=== PATIENT | female | born 1965 | race Caucasian/White ===

== ENCOUNTER 2025-09-18 14:33 | Inpatient (IN) | payer MEDICAID, SELFPAY ==
[2025-09-18] VITALS (7 sets, daily range): BP systolic 116–139; BP diastolic 87–97; PULSE 88–105; RESP 16–20; TEMP 36.7–36.9; O2SAT 97–100; BMI 26.2; BMI 25.7
[2025-09-18 16:06] LABS: Barbiturate Urine NEGATIVE (< 200 ng/mL); Benzodiazepine Urine NEGATIVE (< 200 ng/mL); PCP Urine NEGATIVE (< 25 ng/mL); THC Urine NEGATIVE (< 50 ng/mL)
--- NOTE | 2025-09-18 16:08 | EX.ED.SAOD ---
HPI History of Present Illness Chief Complaint: Substance Abuse Narrative Narrative: 60-year-old female past medical history of hypertension, GERD, and depression presents with her eldest son for detox from alcohol. They state that they were somewhere in [place], and were told that she needed to enter detox either at [place] or here. Her last detox was approximately 4 years ago. She was sober for approximately 1 year according to her, when she returned to drinking alcohol. She states that she drinks at least 3 to 416 ounce beers and then 2 to 324 ounce beers daily. Her last drink was 18 to 20 hours ago. States she feels slightly nauseated and was slightly shaky, but states she has never had seizures from alcohol withdrawal in the past. No exacerbating or alleviating factors. PFSH PFSH Allergy/AdvReac Type Severity Reaction Status Date / Time Sulfa (Sulfonamide Allergy Rash Verified 09/18/25 14:36 Antibiotics) ROS ROS ED ROS Narrative Review of systems positive for nausea and shakiness. Shakiness has resolved. No abdominal pain. No vomiting. No seizure activity. Last drink 18 to 20 hours ago. Usually drinks beer on a daily basis. Last rehab approximately 4 years ago in [place]. EXAM Physical Exam Narrative Exam Narrative: Afebrile. Vital signs noted. Nontoxic-appearing. Cardiovascular examination reveals regular rate and rhythm. Lungs are clear to auscultation bilaterally. Abdomen is soft and nontender with positive bowel sounds. No guarding or rebound. Neurological examination is nonfocal, nonlateralizing. Awake, alert, interactive, appropriate. No noted tremors. Const Vital Signs: 09/18/25 14:34 09/18/25 16:34 09/18/25 18:00 Temperature 98.3 F Temperature Source Oral Pulse Rate 88 96 91 Respiratory Rate 16 20 H Blood Pressure 135/87 H 133/96 H 138/93 H Blood Pressure Mean 103 108 108 Pulse Ox 100 98 98 Oxygen Delivery Method Room Air Room Air Room Air MDM MDM MDM Narrative Medical decision making narrative: I do not feel that differential diagnosis is applicable in this case. She is here for detox from alcohol. Currently, there are no signs of active withdrawal. She has not been excessively hypertensive with a blood pressure of 135/87. No tachycardia. No noted gooseflesh or tremors. Urine for drugs of abuse obtained and reviewed and is negative. I reviewed her laboratory work and she has normal white count of 6.9 with hemoglobin slightly hemoconcentrated at 15.3, hematocrit 41.2, platelet count 259. CMP is noted to have hyponatremia with sodium of 127 and potassium 3.2, chloride low at 87. Glucose is elevated 223 and anion gap slightly elevated at 16. LFTs are elevated with an AST of 90, ALT of 79, and alk phos of 202. Magnesium is normal at 1.6. Urine for drugs of abuse is negative. Alcohol level is less than 10.1. I discussed the patient with Dr. Reed for admission to the medical surgical floor. Initially I had inquired about phenobarbital, but on his examination, he will administer/ordered lorazepam 2 mg IV for the patient because of shakiness. Disposition is admitted to the general medical floor in stable condition. History & Record Review Discussion w/independent historian: Patient and Family (Call the son) Additional record(s) reviewed:: No prior records (No prior ED visits) Lab Data Attestation: I reviewed the patient's lab results. Labs: Laboratory Results - last 24 hr 09/18/25 09/18/25 15:00 16:49 WBC 6.9 RBC 4.73 Hgb 15.3 H Hct 41.2 MCV 87.1 MCH 32.3 H MCHC 37.1 H RDW Std Deviation 35.7 RDW Coeff of Serene 11.0 L Plt Count 259 MPV 9.5 Immature Gran % (Auto) 0.100 Neut % (Auto) 70.1 H Lymph % (Auto) 16.3 L [place] % (Auto) 12.4 H Eos % (Auto) 0.1 Baso % (Auto) 1.0 Absolute Neuts (auto) 4.8 Absolute Lymphs (auto) 1.13 Nucleated RBC % 0 Sodium 127 L Potassium 3.2 L Chloride 87 L Carbon Dioxide 23.3 Anion Gap 16 H BUN 5 Creatinine 0.55 L Estim Creat Clear Calc 93.99 Est GFR (MDRD) Non-Af 104 BUN/Creatinine Ratio 8.9 L Glucose 223 H Calcium 10.2 Magnesium 1.6 Total Bilirubin 1.24 AST 90 H ALT 79 H Alkaline Phosphatase 202 H Total Protein 8.2 Albumin 4.6 Globulin 3.6 Albumin/Globulin Ratio 1.3 Urine Opiates Screen NEGATIVE U Buprenorphine Qual NEGATIVE Ur Oxycodone Screen NEGATIVE Urine Methadone Screen NEGATIVE Urine Fentanyl Screen NEGATIVE Ur Barbiturates Screen NEGATIVE Ur Phencyclidine Scrn NEGATIVE Ur Amphetamines Screen NEGATIVE U Benzodiazepines Scrn NEGATIVE Urine Cocaine Screen NEGATIVE U Cannabinoids Screen NEGATIVE Ethyl Alcohol < 10.1 Management Discussion w/another healthcare provider: Hospitalist (Dr. Reed) Discharge Plan Dx/Rx/DC Orders Clinical Impression: Desire for detoxification, Hyponatremia, Hypokalemia Disposition Disposition: Acute Care Hospital [facility]
--- NOTE | 2025-09-18 17:13 | CM.ED ---
Social Work Patient requesting detox from alcohol. Treatment navigator notified of admission. Natacha Gaxiola, ENCAPSULATOR, MOTOR VEHICLES SUPERVISOR
[2025-09-18 17:21] LABS: Alcohol, Blood (Medical)-Serum < 10.1 mg/dL (<=10.0)
[2025-09-18 17:23] LABS: AST(SGOT) 90 U/L (<=31); Alanine Aminotransfer ALT/SGPT 79 U/L (<=34); Albumin, Serum 4.6 g/dL (3.4-4.8); Alkaline Phosphatase 202 U/L (35-104); Anion Gap 16 (5-15); BUN 5 mg/dL (4-19); BUN/Creat Ratio 8.9 RATIO (10-20); Calcium,Total 10.2 mg/dL (7.6-11.0); Carbon Dioxide 23.3 mmol/L (21.0-32.0); Chloride 87 mmol/L (98-108); Estimated Creatinine Clearance 93.99 ml/min (50-250); Globulin 3.6 g/dL (2.2-4.2); Glucose 223 mg/dL (70-99); Potassium 3.2 mmol/L (3.3-5.1)
[2025-09-18 17:45] LABS: Hematocrit 41.2 % (37-47); Hemoglobin 15.3 g/dL (12.0-15.0); Immature Granulocytes Count 0.010 X10^3/uL (0.0-0.0); Mean Corp Hgb Conc 37.1 g/dL (32-36); Mean Corpuscular Volume 87.1 fL (81-99); Mean Platelet Vol. 9.5 fl (6.2-12.0); NRBC Flagged by Analyzer 0 % (0-5); Platelet Count 259 K/mm3 (150-450); RBC Distribution Width CV 11.0 % (11.6-14.6); RBC Distribution Width SD 35.7 fl (35.1-43.9); Red Blood Count 4.73 M/mm3 (4.2-5.4); White Blood Count 6.9 K/mm3 (4.4-11.0)
[2025-09-18 18:40] LABS: Magnesium 1.6 mg/dL (1.5-2.2)
--- NOTE | 2025-09-18 20:34 | PCM.HP.STD ---
HPI - General General Date of Admission: 09/18/25 Date of Service: 09/18/25 Chief Complaint: Requesting services for alcohol detox HPI Narrative ANA SAHA, is a 60 F who presents to the emergency room at [facility] requesting services for alcohol substance use disorder and alcohol detox. Patient's last drink was yesterday, she complains of feeling nervous and shaky. Patient had gone through detox before when she lived in [place]. Patient admits to drinking the equivalent of 14 light beers (12 ounces) per day. Patient denies any liquor usage and she denies any other substance abuse. Patient does not know any of her medications although she states she does take an antidepressant and medicine for hypertension. It appears she obtains these medications by mail and I am unable to confirm what these medications are. Labs obtained in the emergency room included a CBC which was unremarkable, chemistry profile was abnormal for a sodium of 127, potassium of 3.2, chloride of 87, and glucose of 223. Patient's liver enzymes are elevated-her AST was 90, ALT was 79, and alkaline phosphatase was 202. Patient will be admitted to [place] [id number], she will have a repeat BMP tomorrow morning, she will be given sliding scale insulin per fingerstick blood sugars, I have elected to give her IV fluid for now and recheck her sodium tomorrow morning with her BMP. It is likely her beer intake is causing low sodium. Nursing will need to confirm her home medications, perhaps her son can provide the information. [facility] Medical History Alcohol abuse Anxiety Depression Smoker Allergy/AdvReac Type Severity Reaction Status Date / Time Sulfa (Sulfonamide Allergy Rash Verified 09/18/25 14:36 Antibiotics) Surgical History (Updated 09/18/25 @ 19:09 by Azucena Ibanez) History of cholecystectomy Social History Smoking Status: Current every day smoker tobacco type: cigarettes ROS Constitutional Constitutional: Denies anorexia, change in weight, chills, fever(s), night sweats or weakness Eyes Eyes: Denies blurry vision, change in vision, discharge from eye(s) or eye pain Cardiovascular Cardiovascular: Denies chest pain, claudication, edema or palpitations Respiratory/Chest Respiratory/Chest: Denies cough, hemoptysis, shortness of breath at rest or shortness of breath with exertion Gastrointestinal Gastrointestinal: Denies abdominal pain, constipation, diarrhea, hematemesis, hematochezia, melena, nausea or vomiting Genitourinary Genitourinary: Denies dysuria, hematuria, urinary frequency, urinary hesitancy, urinary incontinence or urinary urgency Musculoskeletal Musculoskeletal: Denies back pain, joint pain, joint stiffness, joint swelling, myalgias or neck pain Neurologic Neurologic: Denies abnormal gait, abnormal speech, dizziness, focal weakness, headache(s), loss of vision, numbness, other visual disturbances, paresthesias, syncope or tingling Psychiatric Psychiatric: Reports anxiety, depression and irritability; Denies cognitive impairment, mood swings or suicidal ideation Endocrine Endocrinology: Denies change in body appearance, cold intolerance, excessive sweating, heat intolerance, polydipsia or polyuria Hematologic/Lymphatic Hematologic/Lymphatic: Denies none, anemia, easy bleeding, easy bruising or lymphadenopathy Allergic/Immunologic Allergic/Immunologic: Denies rhinitis, urticaria, eczemia or asthma Vital Signs Vital Signs Vital Signs: 09/18/25 14:34 09/18/25 16:34 09/18/25 18:00 Temperature 98.3 F Temperature Source Oral Pulse Rate 88 96 91 Respiratory Rate 16 20 H Blood Pressure 135/87 H 133/96 H 138/93 H Blood Pressure Mean 103 108 108 Pulse Ox 100 98 98 Oxygen Delivery Method Room Air Room Air Room Air 09/18/25 19:14 Temperature 98.0 F Temperature Source Pulse Rate 104 H Respiratory Rate 18 Blood Pressure 139/97 H Blood Pressure Mean 111 Pulse Ox 97 Oxygen Delivery Method Weight Weight: 65.2 kg Body Mass Index (BMI) 26.2 Physical Exam Const alert, oriented x3, no apparent distress and average body habitus Constitutional Narrative: Patient appears older than her stated age General Appearance: cooperative, well kempt and well developed Orientation / Consciousness: awake, oriented to person, oriented to place and oriented to time HEENT normocephalic, head/scalp atraumatic, hearing grossly normal bilaterally and moist oral mucous membranes Eyes PERRL, EOMs intact bilaterally and conjunctivae normal Neck supple, no JVD, thyroid normal and no carotid bruits General: trachea midline Resp normal respiratory effort, no retractions, no use of accessory muscles and clear to auscultation bilaterally Auscultation: Negative for rales, rhonchi or wheezes Cardio regular rate, regular rhythm, S1 normal heart sound, S2 normal heart sound, no murmurs, no rub and no gallops GI normal to inspection, nondistended, normoactive bowel sounds, soft to palpation, non-tender and non-distended Extremity no clubbing, cyanosis or edema Skin no rashes or lesions noted General Skin Exam: no breakdown Neuro oriented x3, CN's II-XII intact bilaterally, no focal motor deficits and no sensory deficits noted Sensorium / Orientation: awake and alert Speech: speech normal Psych Psych Narrative: Patient appears mildly anxious, she is appropriate and not agitated Results Lab / Micro Data 09/18/25 16:49 09/18/25 16:49 Labs: Laboratory Results - last 24 hr 09/18/25 15:00: Urine Opiates Screen NEGATIVE, U Buprenorphine Qual NEGATIVE, Ur Oxycodone Screen NEGATIVE, Urine Methadone Screen NEGATIVE, Urine Fentanyl Screen NEGATIVE, Ur Barbiturates Screen NEGATIVE, Ur Phencyclidine Scrn NEGATIVE, Ur Amphetamines Screen NEGATIVE, U Benzodiazepines Scrn NEGATIVE, Urine Cocaine Screen NEGATIVE, U Cannabinoids Screen NEGATIVE 09/18/25 16:49: WBC 6.9, RBC 4.73, Hgb 15.3 H, Hct 41.2, MCV 87.1, MCH 32.3 H, MCHC 37.1 H, RDW Std Deviation 35.7, RDW Coeff of Serene 11.0 L, Plt Count 259, MPV 9.5, Immature Gran % (Auto) 0.100, Neut % (Auto) 70.1 H, Lymph % (Auto) 16.3 L, [place] % (Auto) 12.4 H, Eos % (Auto) 0.1, Baso % (Auto) 1.0, Absolute Neuts (auto) 4.8, Absolute Lymphs (auto) 1.13, Nucleated RBC % 0, Sodium 127 L, Potassium 3.2 L, Chloride 87 L, Carbon Dioxide 23.3, Anion Gap 16 H, BUN 5, Creatinine 0.55 L, Estim Creat Clear Calc 93.99, Est GFR (MDRD) Non-Af 104, BUN/Creatinine Ratio 8.9 L, Glucose 223 H, Calcium 10.2, Magnesium 1.6, Total Bilirubin 1.24, AST 90 H, ALT 79 H, Alkaline Phosphatase 202 H, Total Protein 8.2, Albumin 4.6, Globulin 3.6, Albumin/Globulin Ratio 1.3, Ethyl Alcohol < 10.1 Assessment & Plan Assessment/Plan (1) Desire for detoxification: PLAN: Plan 1. Acute alcohol withdrawal-patient will be admitted to [facility], she will be placed on a phenobarbital taper and be seen by addiction medical social consultant. CIWA scores will be monitored for the first 24 hours. #2 hyponatremia from beer potomania-I have placed the patient on normal saline with KCl at 125 cc/h, BMP will be rechecked tomorrow #3 hypokalemia-patient was given oral potassium and will receive IV fluid with potassium, BMP will be rechecked tomorrow #4 chronic depression-patient is not sure what medication she is on for depression-she thinks it may be Cymbalta 60 mg daily, this will need to be confirmed by nursing, hopefully her son can provide the information. #5 alcoholic hepatitis-this appears to be mild at this time, I will recheck the patient's liver profile tomorrow #6 possible hypertension-again patient does not know what medication she is on for hypertension, she thinks it may be amlodipine plus another medication. Again this will need to be confirmed by nursing #7 chronic alcoholism-patient will need follow-up as an outpatient with a detox program to maintain sobriety, patient will be seen by addiction medical social consultant Total clinical time spent by myself addressing the patient's medical issues, reviewing all of her data, and collaborating with patient's care team: 55 minutes Charges/Coding Visit Charges Inpatient E&M: 68336 Init Hosp L2 D/C Safety Score for UGIB Assessment [place] Bleeding Score (GBS): Stratifies upper GI bleeding patients who are "low-risk" and candidates for outpatient management. Hemoglobin, BUN, Recent Vital Signs: Hgb 15.3 g/dL (12.0-15.0) H 09/18/25 16:49 BUN 5 mg/dL (4-19) 09/18/25 16:49 Pulse Rate 104 Blood Pressure 139/97 Score Interpretation: Score of 0: A GBS of 0 is a “Low Risk” GI bleed, and is highly sensitive (99.6% in a 2007 retrospective study) for predicting which patients did not require any “medical intervention”: blood transfusion, endoscopy, or surgery. This was confirmed in a 2009 Lancet study where patients with a score of 0 were actually discharged and had no GI bleeding mortality at 6 month followup Score above 0: A GBS greater than zero suggests a “High Risk” GI bleed that is likely to require “medical intervention”: transfusion, endoscopy, or surgery. A higher GBS also correlated with a higher likelihood of needing intervention Scores >/= 6 are associated with >50% risk of needing intervention D/C Safety Score for LGIB Assessment Assessment Tool: Readmission and adverse event risk in patients with acute lower GI bleeding. Hemoglobin and Recent Vital Signs: Hgb 15.3 g/dL (12.0-15.0) H 09/18/25 16:49 Pulse Rate 104 09/18/25 19:14 Blood Pressure 139/97 09/18/25 19:14 Score Interpretation: Probability Percentage of safe discharge (absence of rebleeding, blood transfusion, therapeutic intervention, 28 day readmission, or ) Score of 8 or below: Consider discharge, with appropriate precautions. Score of 9 or above: Discharge NOT recommended. Consider admission with further workup and resuscitation as necessary.
[2025-09-18] MEDS: Potassium Chloride Oral Tablet 20 MEQ PO (22:05)
[2025-09-18] MEDS: hydrOXYzine PAM 25 MG Capsule 50 MG PO (22:06)
[2025-09-18] MEDS: Heparin Injection (Vial) 5,000 UNIT/ML VIAL 5000 UNIT SC (22:06)
[2025-09-18] MEDS: KCL 20MEQ in 0.9% NS 20 MEQ/1,000 ML IV.SOLN. 125 MEQ IV (22:06)
[2025-09-18] MEDS: Nicotine (PBKC) 14 MG Patch TD (22:06)
[2025-09-19 02:27] VITALS: BP 116/82; PULSE 91; RESP 16; TEMP 36.7; O2SAT 99
[2025-09-19 06:17] VITALS: BP 114/82; PULSE 90; RESP 16; TEMP 36.9; O2SAT 100
[2025-09-19] MEDS: KCL 20MEQ in 0.9% NS 20 MEQ/1,000 ML IV.SOLN. 125 MEQ IV ×3 (06:20→22:37)
[2025-09-19 07:56] LABS: AST(SGOT) 43 U/L (<=31); Alanine Aminotransfer ALT/SGPT 53 U/L (<=34); Albumin, Serum 3.8 g/dL (3.4-4.8); Alkaline Phosphatase 154 U/L (35-104); Anion Gap 9 (5-15); BUN 5 mg/dL (4-19); BUN/Creat Ratio 10.8 RATIO (10-20); Bilirubin, Direct 0.44 mg/dL (0.00-0.30); Calcium,Total 9.4 mg/dL (7.6-11.0); Carbon Dioxide 25.9 mmol/L (21.0-32.0); Chloride 97 mmol/L (98-108); Estimated Creatinine Clearance 102.36 ml/min (50-250); Globulin 2.6 g/dL (2.2-4.2); Glucose 91 mg/dL (70-99); Potassium 4.1 mmol/L (3.3-5.1)
[2025-09-19 08:00] VITALS: BP 143/97; PULSE 92; RESP 16; TEMP 36.6; O2SAT 99
[2025-09-19] MEDS: Nicotine (PBKC) 14 MG Patch TD (08:23)
[2025-09-19] MEDS: Thiamine Hydrochloride 100 MG Tablet PO (08:23)
[2025-09-19] MEDS: Heparin Injection (Vial) 5,000 UNIT/ML VIAL 5000 UNIT SC ×2 (08:25→20:47)
--- NOTE | 2025-09-19 09:06 | NURSING ---
Call received from sonVineet. Update on current status given as requested. Advised that once discharged, pt will have access to phone.
--- NOTE | 2025-09-19 11:23 | ADDICTION ---
Met with the patient to complete RAMP assessments. She was open and forthcoming in discussing her alcohol history and recovery goals. She requested Vivitrol. She does meet criteria. Dr. Capone was informed of the referral. The patient demonstrated insight into their recovery process, acknowledging the importance of learning about addiction, understanding associated behaviors, and developing new coping strategies to support long-term success. She would like treatment resources that provide follow-up MAT and outpatient tx. At this time, the patient did not identify any transportation needs post-discharge.
--- NOTE | 2025-09-19 15:56 | PN.HOSP_ITS ---
Reason for Visit Chief Complaint: Requesting services for alcohol detox Objective Data Objective Data Vital Signs: Vital Signs Temp Pulse Resp BP Pulse Ox O2 Del Method 97.9 F 92 16 143/97 H 99 Room Air 09/19/25 08:00 09/19/25 08:00 09/19/25 08:00 09/19/25 08:00 09/19/25 08:00 09/19/25 14:49 Oxygen Delivery Method Room Air Weight: 140 lb 10.479 oz Body Mass Index (BMI) 25.7 Intake & Output: Intake and Output for Last 24 Hours 09/17/25 09/18/25 09/19/25 23:59 23:59 23:59 Intake Total 2493.75 / 2493.75 Balance 2493.75 / 2493.75 Lab / Micro Data 09/18/25 16:49 09/19/25 06:49 Labs: Laboratory Results - last 24 hr 09/18/25 15:00: Urine Opiates Screen NEGATIVE, U Buprenorphine Qual NEGATIVE, Ur Oxycodone Screen NEGATIVE, Urine Methadone Screen NEGATIVE, Urine Fentanyl Screen NEGATIVE, Ur Barbiturates Screen NEGATIVE, Ur Phencyclidine Scrn NEGATIVE, Ur Amphetamines Screen NEGATIVE, U Benzodiazepines Scrn NEGATIVE, Urine Cocaine Screen NEGATIVE, U Cannabinoids Screen NEGATIVE 09/18/25 16:49: WBC 6.9, RBC 4.73, Hgb 15.3 H, Hct 41.2, MCV 87.1, MCH 32.3 H, M CHC 37.1 H, RDW Std Deviation 35.7, RDW Coeff of Serene 11.0 L, Plt Count 259, MPV 9.5, Immature Gran % (Auto) 0.100, Neut % (Auto) 70.1 H, Lymph % (Auto) 16.3 L, [place] % (Auto) 12.4 H, Eos % (Auto) 0.1, Baso % (Auto) 1.0, Absolute Neuts (auto) 4.8, Absolute Lymphs (auto) 1.13, Nucleated RBC % 0, Sodium 127 L, Potassium 3.2 L, Chloride 87 L, Carbon Dioxide 23.3, Anion Gap 16 H, BUN 5, Creatinine 0.55 L, Estim Creat Clear Calc 93.99, Est GFR (MDRD) Non-Af 104, BUN/Creatinine Ratio 8.9 L, Glucose 223 H, Calcium 10.2, Magnesium 1.6, Total Bilirubin 1.24, AST 90 H, ALT 79 H, Alkaline Phosphatase 202 H, Total Protein 8.2, Albumin 4.6, Globulin 3.6, Albumin/Globulin Ratio 1.3, Ethyl Alcohol < 10.1 09/18/25 22:52: POC Glucose 150 H 09/19/25 06:22: POC Glucose 95 09/19/25 06:49: Sodium 132 L, Potassium 4.1, Chloride 97 L, Carbon Dioxide 25.9, Anion Gap 9, BUN 5, Creatinine 0.50 L, Estim Creat Clear Calc 102.36, Est GFR (MDRD) Non-Af 106, BUN/Creatinine Ratio 10.8, Glucose 91, Calcium 9.4, Total Bilirubin 0.99, Direct Bilirubin 0.44 H, AST 43 H, ALT 53 H, Alkaline Phosphatase 154 H, Total Protein 6.4, Albumin 3.8, Globulin 2.6 09/19/25 11:05: POC Glucose 123 H Physical Exam Narrative Seen and examined. Patient admitted with acute alcohol withdrawal symptoms. She drinks 14 beers per day, started at the age of 15-16. Denies abdominal pain or liver disease. Physical exam: General: Alert, Oriented x3, Cooperative. BMI 25.7 kg/m² HEENT: Atraumatic, PERRLA, EOMI, Normocephalic. Oral: No Gingival or Mucosal Lesions/ Ulcerations Neck: Supple, No JVD, Negative Carotid Bruits Chest wall/Lungs: Air entry diminished in bilateral lung bases. No crepitation/rhonchi Cardiovascular: Regular rate and rhythm, Normal S1,S2, No M/G/R Abdomen: Bowel Sounds Present, Soft, Non Tender, Non-Distended : No dysuria. No renal angle tenderness. No suprapubic tenderness. Extremities: No edema, Capillary Refill Less than 3 Seconds Skin: No rashes, No breakdown Musculoskeletal: No Tenderness to Palpation of Joints or Extremities. Mild shakiness Neurological: Cranial nerves II-XII grossly intact, DTR 2+/4. No acute focal neurological deficit. Psych/Mental Status: Flat affect. Assessment & Plan Assessment/Plan (1) Desire for detoxification: PLAN: Plan This is a 60-year-old female being admitted for acute alcohol withdrawal symptoms 1. Acute alcohol withdrawal syndrome with history of chronic alcohol use dependence and tolerance: Patient is being admitted to MedSurg floor. Patient on phenobarbital based order set along with other adjunctive medications gabapentin, Bentyl, Vistaril, clonidine, Klonopin as needed for alcohol withdrawal symptom control. Patient is on thiamine and folate acid. CIWA monitor. business segment manager 180 consulted. #2. Hyponatremia from beer potomania: Serum sodium 127 improved to 132. Started on sodium tablet #3 hypokalemia-oral plus IV KCl replaced. Repeat potassium normal 4.1. Hypokalemia resolved. Anion gap 9. Bicarb 26. #4 chronic depression: She might be on Cymbalta 60 mg daily, as she is not certain. #5 Unclear whether acute or chronic but most probably chronic alcoholic hepatitis with history of chronic alcohol use: Transaminases are improving. Alkaline phosphatase also improving. Monitor liver chemistry #6. Possible hypertension:-She is unclear whether she is on amlodipine or other medication. Needs to be confirmed by patient's pharmacy by the nursing staff. DVT prophylaxis, moderate risk on heparin 500 subcutaneous twice daily Laboratory Results 09/18/25 15:00: Urine Opiates Screen NEGATIVE, U Buprenorphine Qual NEGATIVE, Ur Oxycodone Screen NEGATIVE, Urine Methadone Screen NEGATIVE, Urine Fentanyl Screen NEGATIVE, Ur Barbiturates Screen NEGATIVE, Ur Phencyclidine Scrn NEGATIVE, Ur Amphetamines Screen NEGATIVE, U Benzodiazepines Scrn NEGATIVE, Urine Cocaine Screen NEGATIVE, U Cannabinoids Screen NEGATIVE 09/18/25 16:49: WBC 6.9, RBC 4.73, Hgb 15.3 H, Hct 41.2, MCV 87.1, MCH 32.3 H, M CHC 37.1 H, RDW Std Deviation 35.7, RDW Coeff of Serene 11.0 L, Plt Count 259, MPV 9.5, Immature Gran % (Auto) 0.100, Neut % (Auto) 70.1 H, Lymph % (Auto) 16.3 L, [place] % (Auto) 12.4 H, Eos % (Auto) 0.1, Baso % (Auto) 1.0, Absolute Neuts (auto) 4.8, Absolute Lymphs (auto) 1.13, Nucleated RBC % 0, Sodium 127 L, Potassium 3.2 L, Chloride 87 L, Carbon Dioxide 23.3, Anion Gap 16 H, BUN 5, Creatinine 0.55 L, Estim Creat Clear Calc 93.99, Est GFR (MDRD) Non-Af 104, BUN/Creatinine Ratio 8.9 L, Glucose 223 H, Calcium 10.2, Magnesium 1.6, Total Bilirubin 1.24, AST 90 H, ALT 79 H, Alkaline Phosphatase 202 H, Total Protein 8.2, Albumin 4.6, Globulin 3.6, Albumin/Globulin Ratio 1.3, Ethyl Alcohol < 10.1 09/18/25 22:52: POC Glucose 150 H 09/19/25 06:22: POC Glucose 95 09/19/25 06:49: Sodium 132 L, Potassium 4.1, Chloride 97 L, Carbon Dioxide 25.9, Anion Gap 9, BUN 5, Creatinine 0.50 L, Estim Creat Clear Calc 102.36, Est GFR (MDRD) Non-Af 106, BUN/Creatinine Ratio 10.8, Glucose 91, Calcium 9.4, Total Bilirubin 0.99, Direct Bilirubin 0.44 H, AST 43 H, ALT 53 H, Alkaline Phosphatase 154 H, Total Protein 6.4, Albumin 3.8, Globulin 2.6 09/19/25 11:05: POC Glucose 123 H Charges/Coding Visit Charges Inpatient E&M: 32279 Subs Hosp L2
[2025-09-19 16:00] VITALS: BP 117/77; PULSE 93; RESP 18; TEMP 37; O2SAT 100
[2025-09-19 20:00] VITALS: BP 121/85; PULSE 87; RESP 16; TEMP 36.8; O2SAT 100
[2025-09-19 22:00] VITALS: PULSE 85
[2025-09-20] VITALS: BP 129/84; PULSE 85; RESP 16; TEMP 36.8; O2SAT 97
[2025-09-20 04:00] VITALS: BP 129/84; PULSE 84; RESP 16; TEMP 36.8; O2SAT 97
[2025-09-20] MEDS: KCL 20MEQ in 0.9% NS 20 MEQ/1,000 ML IV.SOLN. 125 MEQ IV ×2 (06:30→15:39)
[2025-09-20 08:00] VITALS: BP 135/83; PULSE 85; RESP 16; TEMP 36.3; O2SAT 100
[2025-09-20 08:19] LABS: Hematocrit 36.4 % (37-47); Hemoglobin 12.7 g/dL (12.0-15.0); Immature Granulocytes Count 0.010 X10^3/uL (0.0-0.0); Mean Corp Hgb Conc 34.9 g/dL (32-36); Mean Corpuscular Volume 93.6 fL (81-99); Mean Platelet Vol. 9.9 fl (6.2-12.0); NRBC Flagged by Analyzer 0 % (0-5); Platelet Count 176 K/mm3 (150-450); RBC Distribution Width CV 11.5 % (11.6-14.6); RBC Distribution Width SD 38.7 fl (35.1-43.9); Red Blood Count 3.89 M/mm3 (4.2-5.4); White Blood Count 4.0 K/mm3 (4.4-11.0)
[2025-09-20] MEDS: Thiamine Hydrochloride 100 MG Tablet PO (08:47)
[2025-09-20] MEDS: Nicotine (PBKC) 14 MG Patch TD (08:47)
[2025-09-20] MEDS: Heparin Injection (Vial) 5,000 UNIT/ML VIAL 5000 UNIT SC ×2 (08:48→21:14)
[2025-09-20 09:00] LABS: AST(SGOT) 29 U/L (<=31); Alanine Aminotransfer ALT/SGPT 34 U/L (<=34); Albumin, Serum 3.7 g/dL (3.4-4.8); Alkaline Phosphatase 133 U/L (35-104); Anion Gap 10 (5-15); BUN 4 mg/dL (4-19); BUN/Creat Ratio 11.7 RATIO (10-20); Bilirubin, Direct 0.26 mg/dL (0.00-0.30); Calcium,Total 8.9 mg/dL (7.6-11.0); Carbon Dioxide 22.1 mmol/L (21.0-32.0); Chloride 102 mmol/L (98-108); Estimated Creatinine Clearance 134.68 ml/min (50-250); Globulin 2.5 g/dL (2.2-4.2); Glucose 91 mg/dL (70-99); Potassium 3.8 mmol/L (3.3-5.1)
--- NOTE | 2025-09-20 10:23 | NURSING ---
Call returned to sonNithin. Updated on current status.
--- NOTE | 2025-09-20 11:25 | NURSING ---
Notified son, Nithin, of tentative discharge for 09/21.
[2025-09-20 12:00] VITALS: BP 122/85; PULSE 63; RESP 16; TEMP 36.3; O2SAT 93
--- NOTE | 2025-09-20 15:02 | PCM.PN.HOSP ---
Reason for Visit Chief Complaint: Requesting services for alcohol detox Objective Data Objective Data Vital Signs: Vital Signs Temp Pulse Resp BP Pulse Ox O2 Del Method 97.4 F L 85 16 135/83 H 100 Room Air 09/20/25 08:00 09/20/25 08:00 09/20/25 08:00 09/20/25 08:00 09/20/25 08:00 09/20/25 09:09 Oxygen Delivery Method Room Air Weight: 140 lb 10.479 oz Body Mass Index (BMI) 25.7 Intake & Output: Intake and Output for Last 24 Hours 09/18/25 09/19/25 09/20/25 23:59 23:59 23:59 Intake Total 3993.75 / 3993.75 985.42 / 985.42 Balance 3993.75 / 3993.75 985.42 / 985.42 Lab / Micro Data 09/20/25 07:39 09/20/25 07:39 Labs: Laboratory Results - last 24 hr 09/19/25 16:16: POC Glucose 150 H 09/20/25 06:46: POC Glucose 92 09/20/25 07:39: WBC 4.0 L, RBC 3.89 L, Hgb 12.7, Hct 36.4 L, MCV 93.6 D, MCH 32.6 H, MCHC 34.9 D, RDW Std Deviation 38.7, RDW Coeff of Serene 11.5 L, Plt Count 176, MPV 9.9, Immature Gran % (Auto) 0.200, Neut % (Auto) 41.2 L, Lymph % (Auto) 39.3, [place] % (Auto) 16.9 H, Eos % (Auto) 1.7, Baso % (Auto) 0.7, Absolute Neuts (auto) 1.7 L, Absolute Lymphs (auto) 1.58, Nucleated RBC % 0, Sodium 134, Potassium 3.8, Chloride 102, Carbon Dioxide 22.1, Anion Gap 10, BUN 4, Creatinine 0.38 L, Estim Creat Clear Calc 134.68, Est GFR (MDRD) Non-Af 113, BUN/Creatinine Ratio 11.7, Glucose 91, Calcium 8.9, Total Bilirubin 0.50, Direct Bilirubin 0.26, AST 29, ALT 34, Alkaline Phosphatase 133 H, Total Protein 6.1, Albumin 3.7, Globulin 2.5 09/20/25 11:06: POC Glucose 171 H Physical Exam Narrative Seen and examined. Patient is a good candidate for Vivitrol therefore ordered for tomorrow morning before discharge. She feels mild drowsy and lethargic sleepy. On phenobarb. Patient admitted with acute alcohol withdrawal symptoms. She drinks 14 beers per day, started at the age of 15-16. Denies abdominal pain or liver disease. Physical exam: General: Alert, Oriented x3, Cooperative. BMI 25.7 kg/m² HEENT: Atraumatic, PERRLA, EOMI, Normocephalic. Oral: No Gingival or Mucosal Lesions/ Ulcerations Neck: Supple, No JVD, Negative Carotid Bruits Chest wall/Lungs: Air entry diminished in bilateral lung bases. No crepitation/rhonchi Cardiovascular: Regular rate and rhythm, Normal S1,S2, No M/G/R Abdomen: Bowel Sounds Present, Soft, Non Tender, Non-Distended : No dysuria. No renal angle tenderness. No suprapubic tenderness. Extremities: No edema, Capillary Refill Less than 3 Seconds Skin: No rashes, No breakdown Musculoskeletal: No Tenderness to Palpation of Joints or Extremities. Mild shakiness Neurological: Cranial nerves II-XII grossly intact, DTR 2+/4. No acute focal neurological deficit. Psych/Mental Status: Flat affect. Assessment & Plan Assessment/Plan (1) Desire for detoxification: PLAN: Plan This is a 60-year-old female being admitted for acute alcohol withdrawal symptoms 1. Acute alcohol withdrawal syndrome with history of chronic alcohol use dependence and tolerance: [facility]. Patient on phenobarbital based order set along with other adjunctive medications gabapentin, Bentyl, Vistaril, clonidine, Klonopin as needed for alcohol withdrawal symptom control. Patient is on thiamine and folate acid. [facility] monitor. rehab therapy manager 180 consulted. 09/20: Her symptoms of withdrawal including tremors, restlessness are controlled. No diaphoresis #2. Hyponatremia from beer potomania: Serum sodium 127 improved to 132. Started on sodium tablet 09/20: Serum sodium is 134 normal. Decrease the dose of sodium tablet from 2 g to 1 g twice daily. Monitor serum sodium tomorrow #3 hypokalemia-oral plus IV KCl replaced. Repeat potassium normal 4.1. Hypokalemia resolved. Anion gap 9. Bicarb 26. #4 chronic depression: She might be on Cymbalta 60 mg daily, as she is not certain. #5 Unclear whether acute or chronic but most probably chronic alcoholic hepatitis with history of chronic alcohol use: Transaminases are improving. Alkaline phosphatase also improving. Monitor liver chemistry 09/20: ALP 233. Transaminases and total bilirubin normal. #6. Possible hypertension:-She is unclear whether she is on amlodipine or other medication. Needs to be confirmed by patient's pharmacy by the nursing staff. DVT prophylaxis, moderate risk on heparin 500 subcutaneous twice daily Laboratory Results 09/19/25 16:16: POC Glucose 150 H 09/20/25 06:46: POC Glucose 92 09/20/25 07:39: WBC 4.0 L, RBC 3.89 L, Hgb 12.7, Hct 36.4 L, MCV 93.6 D, MCH 32.6 H, MCHC 34.9 D, RDW Std Deviation 38.7, RDW Coeff of Serene 11.5 L, Plt Count 176, MPV 9.9, Immature Gran % (Auto) 0.200, Neut % (Auto) 41.2 L, Lymph % (Auto) 39.3, [place]eton % (Auto) 16.9 H, Eos % (Auto) 1.7, Baso % (Auto) 0.7, Absolute Neuts (auto) 1.7 L, Absolute Lymphs (auto) 1.58, Nucleated RBC % 0, Sodium 134, Potassium 3.8, Chloride 102, Carbon Dioxide 22.1, Anion Gap 10, BUN 4, Creatinine 0.38 L, Estim Creat Clear Calc 134.68, Est GFR (MDRD) Non-Af 113, BUN/Creatinine Ratio 11.7, Glucose 91, Calcium 8.9, Total Bilirubin 0.50, Direct Bilirubin 0.26, AST 29, ALT 34, Alkaline Phosphatase 133 H, Total Protein 6.1, Albumin 3.7, Globulin 2.5 09/20/25 11:06: POC Glucose 171 H Charges/Coding Visit Charges Inpatient E&M: 83090 Subs Hosp L2
[2025-09-20] MEDS: hydrOXYzine PAM 25 MG Capsule 50 MG PO (21:20)
[2025-09-20 21:37] VITALS: BP 158/98; PULSE 82; RESP 16; TEMP 36.5; O2SAT 98
[2025-09-21 02:38] VITALS: BP 97/72; PULSE 69; RESP 16; TEMP 36.2; O2SAT 98
[2025-09-21 04:30] LABS: Hematocrit 35.9 % (37-47); Hemoglobin 12.6 g/dL (12.0-15.0); Immature Granulocytes Count 0.020 X10^3/uL (0.0-0.0); Mean Corp Hgb Conc 35.1 g/dL (32-36); Mean Corpuscular Volume 92.8 fL (81-99); Mean Platelet Vol. 10.0 fl (6.2-12.0); NRBC Flagged by Analyzer 0 % (0-5); Platelet Count 186 K/mm3 (150-450); RBC Distribution Width CV 11.1 % (11.6-14.6); RBC Distribution Width SD 37.7 fl (35.1-43.9); Red Blood Count 3.87 M/mm3 (4.2-5.4); White Blood Count 5.8 K/mm3 (4.4-11.0)
[2025-09-21 05:02] LABS: AST(SGOT) 28 U/L (<=31); Alanine Aminotransfer ALT/SGPT 31 U/L (<=34); Albumin, Serum 3.7 g/dL (3.4-4.8); Alkaline Phosphatase 126 U/L (35-104); Anion Gap 12 (5-15); BUN 6 mg/dL (4-19); BUN/Creat Ratio 12.1 RATIO (10-20); Bilirubin, Direct 0.20 mg/dL (0.00-0.30); Calcium,Total 9.3 mg/dL (7.6-11.0); Carbon Dioxide 21.9 mmol/L (21.0-32.0); Chloride 103 mmol/L (98-108); Estimated Creatinine Clearance 106.62 ml/min (50-250); Globulin 2.8 g/dL (2.2-4.2); Glucose 95 mg/dL (70-99); Potassium 3.7 mmol/L (3.3-5.1)
[2025-09-21 08:08] VITALS: BP 133/93; PULSE 74; RESP 17; TEMP 36.3; O2SAT 100
[2025-09-21] MEDS: Thiamine Hydrochloride 100 MG Tablet PO (09:39)
[2025-09-21] MEDS: Naltrexone Microspheres 380 MG SYRINGE IM (10:21)
[2025-09-21] MEDS: Vivitrol Administration Needles 1 EACH MC (10:22)
[2025-09-21] MEDS: Vivitrol ID Card 1 EACH MC (10:22)
--- NOTE | 2025-09-21 10:46 | DCINST_ITS ---
Discharge Instructions DC O2, CPAP, BIPAP needs Home O2 Discharge instructions: No Dressing / Incision Discharge Activity: Return to Normal Activity Weight Bearing Status: Weight bearing as tolerated Dressing / Incision Call your doctor if you observe: Fever of 101 or Higher, Coldness, Increased Pain, Numbness or Tingling, Change in Color, Inability to urinate, Inability to have a bowel movement, Shortness of breath, Dizziness, Fainting spells, Swelling in the ankles, Chest pain, Prolonged hiccupping, Increased palpitations (irregular heartbeat) and Calf discomfort Follow Up Care When: IN 2 WEEKS Test Results: Test results from this visit will be discussed in further detail at your follow- up appointment, if applicable. Discharge Plan Admission Admit Date/Time: 09/18/25 18:33 Attending Provider: Chaim Capone Primary Care Provider: Amilcar Graham,Out of Consulting Providers: Jovanny Reed Instructions Additional Instructions / Restrictions: Follow-up outpatient 180 alcohol rehab program Discharge Orders/Prescriptions Prescriptions: New nicotine 14 mg/24 hr Patch 24 Hour 14 mg transdermal DAILY 28 Days Qty: 28 0RF thiamine HCl (vitamin B1) 100 mg Tablet 100 mg PO DAILYCM 30 Days Qty: 30 2RF folic acid 1 mg Tablet 1 mg PO DAILY@0800 30 Days Qty: 30 2RF Referrals / Follow Up: Amilcar Graham,Out of [Primary Care Provider, Medical] Disposition Disposition (needs filled in before D/C Order can be placed): Home, Self Care
--- NOTE | 2025-09-21 10:52 | PCM.DC.SUM ---
Providers Date of Admission: 09/18/25 Date of Discharge: 09/21/25 Primary Care Physician: Out of [facility] Doctor Reason For Visit: ALCOHOL USE DISORDER ALCOHOL WITHDRAWAL Diagnosis Discharge Diagnosis (1) Desire for detoxification: Status: Acute Plan This is a 60-year-old female being admitted for acute alcohol withdrawal symptoms 1. Acute alcohol withdrawal syndrome with history of chronic alcohol use dependence and tolerance: Patient is being admitted to [facility] floor. Patient on phenobarbital based order set along with other adjunctive medications gabapentin, Bentyl, Vistaril, clonidine, Klonopin as needed for alcohol withdrawal symptom control. Patient is on thiamine and folate acid. [facility] monitor. respiratory manager 180 consulted. 09/20: Her symptoms of withdrawal including tremors, restlessness are controlled. No diaphoresis Patient is doing well. Does not have any significant alcohol withdrawal symptoms. CIWA score is 2. #2. Hyponatremia from beer potomania: Serum sodium 127 improved to 132. Started on sodium tablet 09/20: Serum sodium is 134 normal. Decrease the dose of sodium tablet from 2 g to 1 g twice daily. Monitor serum sodium tomorrow 09/21: Hypokalemia and hyponatremia resolved. Sodium tablet discontinued. #3 hypokalemia-oral plus IV KCl replaced. Repeat potassium normal 4.1. Hypokalemia resolved. Anion gap 9. Bicarb 26. #4 chronic depression: She might be on Cymbalta 60 mg daily, as she is not certain. #5 Unclear whether acute or chronic but most probably chronic alcoholic hepatitis with history of chronic alcohol use: Transaminases are improving. Alkaline phosphatase also improving. Monitor liver chemistry 09/20: ALP 233. Transaminases and total bilirubin normal. 09/21: ALP decreasing 126. Transaminases and total bilirubin are normal #6. Possible hypertension:-She is unclear whether she is on amlodipine or other medication. Needs to be confirmed by patient's pharmacy by the nursing staff. DVT prophylaxis, moderate risk on heparin 500 subcutaneous twice daily Laboratory Results 09/19/25 16:16: POC Glucose 150 H 09/20/25 06:46: POC Glucose 92 09/20/25 07:39: WBC 4.0 L, RBC 3.89 L, Hgb 12.7, Hct 36.4 L, MCV 93.6 D, MCH 32.6 H, MCHC 34.9 D, RDW Std Deviation 38.7, RDW Coeff of Serene 11.5 L, Plt Count 176, MPV 9.9, Immature Gran % (Auto) 0.200, Neut % (Auto) 41.2 L, Lymph % (Auto) 39.3, [place] % (Auto) 16.9 H, Eos % (Auto) 1.7, Baso % (Auto) 0.7, Absolute Neuts (auto) 1.7 L, Absolute Lymphs (auto) 1.58, Nucleated RBC % 0, Sodium 134, Potassium 3.8, Chloride 102, Carbon Dioxide 22.1, Anion Gap 10, BUN 4, Creatinine 0.38 L, Estim Creat Clear Calc 134.68, Est GFR (MDRD) Non-Af 113, BUN/Creatinine Ratio 11.7, Glucose 91, Calcium 8.9, Total Bilirubin 0.50, Direct Bilirubin 0.26, AST 29, ALT 34, Alkaline Phosphatase 133 H, Total Protein 6.1, Albumin 3.7, Globulin 2.5 09/20/25 11:06: POC Glucose 171 H Medications at Discharge Home Medications folic acid 1 mg tablet 1 mg PO DAILY@0800 30 days #30 tabs 09/21/25 nicotine 14 mg/24 hr daily transdermal patch 14 mg transdermal DAILY 28 days #28 ea 09/21/25 thiamine HCl (vitamin B1) 100 mg tablet 100 mg PO DAILYCM 30 days #30 tabs 09/21/25 Physical Exam Narrative Seen and examined. Patient had Vivitrol in the morning today She is awake and alert. On last day of phenobarb. Patient admitted with acute alcohol withdrawal symptoms. She drinks 14 beers per day, started at the age of 15-16. Denies abdominal pain or liver disease. Physical exam: General: Alert, Oriented x3, Cooperative. BMI 25.7 kg/m² HEENT: Atraumatic, PERRLA, EOMI, Normocephalic. Oral: No Gingival or Mucosal Lesions/ Ulcerations Neck: Supple, No JVD, Negative Carotid Bruits Chest wall/Lungs: Air entry diminished in bilateral lung bases. No crepitation/rhonchi Cardiovascular: Regular rate and rhythm, Normal S1,S2, No M/G/R Abdomen: Bowel Sounds Present, Soft, Non Tender, Non-Distended : No dysuria. No renal angle tenderness. No suprapubic tenderness. Extremities: No edema, Capillary Refill Less than 3 Seconds Skin: No rashes, No breakdown Musculoskeletal: No Tenderness to Palpation of Joints or Extremities. No tremors Neurological: Cranial nerves II-XII grossly intact, DTR 2+/4. No acute focal neurological deficit. Psych/Mental Status: Mood appropriate Weight / BMI Weight Weight: 140 lb 10.479 oz Body Mass Index (BMI) 25.7 ABG / Lab / Microbiology Data 09/21/25 03:35 09/21/25 03:35 Laboratory: Laboratory Results - last 24 hr 09/20/25 11:06: POC Glucose 171 H 09/21/25 03:35: WBC 5.8, RBC 3.87 L, Hgb 12.6, Hct 35.9 L, MCV 92.8, MCH 32.6 H, MCHC 35.1, RDW Std Deviation 37.7, RDW Coeff of Serene 11.1 L, Plt Count 186, MPV 10.0, Immature Gran % (Auto) 0.300, Neut % (Auto) 35.0 L, Lymph % (Auto) 46.5 H, Kidder % (Auto) 14.4 H, Eos % (Auto) 2.6, Baso % (Auto) 1.2 H, Absolute Neuts (auto) 2.0, Absolute Lymphs (auto) 2.68, Nucleated RBC % 0, Sodium 137, Potassium 3.7, Chloride 103, Carbon Dioxide 21.9, Anion Gap 12, BUN 6, Creatinine 0.48 L, Estim Creat Clear Calc 106.62, Est GFR (MDRD) Non-Af 107, BUN/Creatinine Ratio 12.1, Glucose 95, Calcium 9.3, Total Bilirubin 0.39, Direct Bilirubin 0.20, AST 28, ALT 31, Alkaline Phosphatase 126 H, Total Protein 6.5, Albumin 3.7, Globulin 2.8 D/C Instructions Weight Bearing Status: Weight bearing as tolerated Call your doctor if you observe: Fever of 101 or Higher, Coldness, Increased Pain, Numbness or Tingling, Change in Color, Inability to urinate, Inability to have a bowel movement, Shortness of breath, Dizziness, Fainting spells, Swelling in the ankles, Chest pain, Prolonged hiccupping, Increased palpitations (irregular heartbeat) and Calf discomfort DC O2, CPAP, BIPAP Needs Home O2 Discharge instructions: No When: IN 2 WEEKS Meaningful Use Info Meaningful Use Meaningful Use Diagnoses (Choose all that apply): None applicable Discharge Plan Admission Admit Date/Time: 09/18/25 18:33 Attending Provider: Chaim Capone Primary Care Provider: Amilcar Graham,Out of Consulting Providers: Jovanny Reed Instructions Additional Instructions / Restrictions: Follow-up outpatient 180 alcohol rehab program Discharge Orders/Prescriptions Prescriptions: New nicotine 14 mg/24 hr Patch 24 Hour 14 mg transdermal DAILY 28 Days Qty: 28 0RF thiamine HCl (vitamin B1) 100 mg Tablet 100 mg PO DAILYCM 30 Days Qty: 30 2RF folic acid 1 mg Tablet 1 mg PO DAILY@0800 30 Days Qty: 30 2RF Referrals / Follow Up: Amilcar Graham,Out of [Primary Care Provider, Medical] Disposition Disposition (needs filled in before D/C Order can be placed): Home, Self Care Charges/Coding Visit Charges Inpatient E&M: 35713 Disch Hosp >30min
== END 2025-09-21 12:53 | disposition home or self-care (01) | DRG 775 ==
LOC: ED 17:30 → MS3 20:31
PROVIDERS: Admitting Provider Internal Medicine; Emergency Provider Emergency Medicine; Visit Provider Internal Medicine
DX: F10.239 Alcohol dependence with withdrawal, unspecified (principal); E87.1 Hypo-osmolality and hyponatremia; K70.10 Alcoholic hepatitis without ascites; I10 Essential (primary) hypertension; F32.A Depression, unspecified; E87.6 Hypokalemia; F17.210 Nicotine dependence, cigarettes, uncomplicated
CPT/HCPCS: 36415; 80048; 80053; 80076; 80307; 82077; 82962; 83735; 85025; 99283; A4216